=== PATIENT | male | born 1975 | race Caucasian/White ===

== ENCOUNTER 2017-03-13 21:44 | Emergency (ER) | payer SELFPAY ==
[~2017-03-13] VITALS: Ht 157.5 cm; Wt 91.6 kg
[2017-03-13 21:48] VITALS: BP 151/102; RESP 16; TEMP 97.9; O2SAT 99
[2017-03-13] MEDS ORDERED: METO25TA3 PO (22:06)
[2017-03-13] MEDS ORDERED: AMLO10TA2 PO (22:06)
[2017-03-13 22:10] VITALS: BP 151/102; PULSE 83; RESP 18; TEMP 97.6; O2SAT 99
--- NOTE | 2017-03-13 22:19 | PD ---
HPI Chief Complaint: Abdominal Pain Time Seen by Provider: 21:51 Travel History International Travel<30 days: No Contact w/Intl Traveler<30days: No Traveled to known affect area: No History of Present Illness HPI This patient complains of abdominal pain. Location is right upper quadrant. Duration is 2 days. Severity is moderate, at times severe. No alleviating factors. No obvious exacerbating factors. He used to be a heavy alcohol drinker but now is only very rare drinker. He had an attack of this month ago but never got it evaluated. PFS Past Medical History Hypertension: Yes Tetanus Vaccination: Unknown Influenza Vaccination: No Past Surgical History Surgical History: No Previous Surgery Social History Alcohol Use: Yes Tobacco Use: No Substance Use: No Allergies-Medications (Allergen,Severity, Reaction): Coded Allergies: No Known Allergies (Unverified , 03/13/17) Reported Meds & Prescriptions Reported Meds & Active Scripts Active Reported Metoprolol Tartrate 25 Mg Tab 25 Mg PO DAILY Amlodipine (Amlodipine Besylate) 10 Mg Tab 10 Mg PO DAILY Review of Systems General / Constitutional: No: Fever Eyes: No: Visual changes HENT: No: Headaches Cardiovascular: No: Chest Pain or Discomfort Respiratory: No: Shortness of Breath Gastrointestinal: Positive: Nausea, Abdominal Pain Genitourinary: No: Dysuria Musculoskeletal: No: Pain Skin: No Rash Neurologic: No: Weakness Psychiatric: No: Depression Endocrine: No: Polydipsia Hematologic/Lymphatic: No: Easy Bruising Physical Exam Narrative GENERAL: Well-nourished, well-developed patient with abdominal pain. SKIN: Focused skin assessment reveals no rash and nodules. Skin is Warm and dry. HEAD: Atraumatic. Normocephalic. EYES: Pupils equal and round. No scleral icterus. No injection or drainage. ENT: No nasal bleeding or discharge. Mucous membranes pink and moist. NECK: Trachea midline. No JVD. CARDIOVASCULAR: Regular rate and rhythm. No murmur appreciated. RESPIRATORY: No accessory muscle use. Clear to auscultation. Breath sounds equal bilaterally. GASTROINTESTINAL: Abdomen soft, right quadrant is tender but no rebound or guarding, nondistended. Hepatic and splenic margins not palpable. MUSCULOSKELETAL: No obvious deformities. No clubbing. No cyanosis. No edema. NEUROLOGICAL: Awake and alert. No obvious cranial nerve deficits. Motor grossly within normal limits. Normal speech. PSYCHIATRIC: Appropriate mood and affect; insight and judgment normal. Data Data Last Documented VS Vital Signs Date Time Temp Pulse Resp B/P (MAP) Pulse Ox O2 Delivery O2 Flow Rate FiO2 03/13/17 22:10 97.6 83 18 151/102 (118) 99 MDM Medical Decision Making Medical Screen Exam Complete: Yes Emergency Medical Condition: Yes Medical Record Reviewed: Yes Differential Diagnosis Biliary colic, cholecystitis, pancreatitis Narrative Course I have reviewed the patient's electronic medical record. I've ordered a abdominal pain workup to include labs and CT I gave him a dose of morphine and Maylin Case checked out to Dr. Raines to assist with disposition after workup complete Diagnosis Primary Impression: Abdominal pain Qualified Codes: R10.11 - Right upper quadrant pain Fer Hernandez MD Mar 13, 2017 22:19
[2017-03-13] MEDS ORDERED: ONDANSETRON HCL 4 MG/2 ML VIAL IVP ONE (22:45)
[2017-03-13] MEDS ORDERED: SODIUM CHLORIDE 0.9% FLUSH 10 ML FLUSH IV FLUSH PRN (22:45)
[2017-03-13] MEDS ORDERED: MORPHINE SULFATE 4 MG/ML INJ IV PUSH ONE ×3 (22:45→23:00)
[2017-03-13 22:46] VITALS: RESP 18; O2SAT 98
[2017-03-13 23:12] VITALS: BP 132/93; PULSE 85; RESP 18; O2SAT 93
[2017-03-13 23:17] LABS: AUTOMATED NEUTROPHIL # 5.6 TH/MM3 (1.8-7.7); BASOPHIL % 0.3 % (0.0-2.0); EOSINOPHIL # 0.1 TH/MM3 (0-0.4); EOSINOPHIL % 1.5 % (0.0-4.0); HEMATOCRIT 43.8 % (39.0-51.0); LYMPH % 26.2 % (9.0-44.0); LYMPHOCYTE # 2.3 TH/MM3 (1.0-4.8); MEAN CELL VOLUME 80.8 FL (80.0-100.0); MEAN CORPUSCULAR HEMOGLOBIN 25.8 PG (27.0-34.0); MEAN CORPUSCULAR HGB CONC 31.9 % (32.0-36.0); MEAN PLATELET VOLUME 8.7 FL (7.0-11.0); MONO % 8.7 % (0.0-8.0); MONOCYTE # 0.8 TH/MM3 (0-0.9); NEUT % 63.3 % (16.0-70.0); PLATELET COUNT 280 TH/MM3 (150-450); RED BLOOD COUNT 5.42 MIL/MM3 (4.50-5.90); RED CELL DISTRIBUTION WIDTH 13.1 % (11.6-17.2); WHITE BLOOD COUNT 8.8 TH/MM3 (4.0-11.0)
[2017-03-13 23:26] LABS: CHLORIDE 98 MEQ/L (98-107); SODIUM (NA) 137 MEQ/L (136-145)
[2017-03-13 23:30] LABS: ALBUMIN 3.9 GM/DL (3.4-5.0); BICARBONATE 30.2 MEQ/L (21.0-32.0); CALCIUM 8.9 MG/DL (8.5-10.1); GLUCOSE,RANDOM 98 MG/DL (74-106); LIPASE 152 U/L (73-393)
[2017-03-13 23:31] LABS: BLOOD UREA NITROGEN 20 MG/DL (7-18); PROTHROMBIN TIME - PATIENT 9.9 SEC (9.8-11.6)
[2017-03-13 23:33] LABS: ALT (GPT) 26 U/L (12-78); AST (GOT) 12 U/L (15-37); GLOMERULAR FILTRATION RATE 56 ML/MIN (>89)
[2017-03-13 23:35] LABS: TOTAL BILIRUBIN ADULT 0.3 MG/DL (0.2-1.0); TOTAL PROTEIN 8.4 GM/DL (6.4-8.2)
[2017-03-13 23:36] LABS: ALKALINE PHOSPHATASE 91 U/L (45-117)
[2017-03-13] MEDS ORDERED: IOHEXOL 350 MG/ML 10 ML VIAL (for RAD DIAG) IVCONTRAST ONE (23:45)
--- NOTE | 2017-03-14 00:14 | RADRPT ---
EXAM DATE/TIME: 03/13/2017 23:40 [facility] COMPARISON: No previous studies available for comparison. INDICATIONS : Left upper quad pain today. IV CONTRAST: 96 cc Omnipaque 350 (iohexol) IV ORAL CONTRAST: No oral contrast ingested. RADIATION DOSE: 14.50 CTDIvol (mGy) MEDICAL HISTORY : Hypertension. SURGICAL HISTORY : None. ENCOUNTER: Initial ACUITY: 1 day PAIN SCALE: 8/10 LOCATION: Left upper quadrant TECHNIQUE: Volumetric scanning of the abdomen and pelvis was performed. Using automated exposure control and ad justment of the mA and/or kV according to patient size, radiation dose was kept as low as reasonably achievable to obtain optimal diagnostic quality images. DICOM format image data is available electro nically for review and comparison. FINDINGS: LOWER LUNGS: The visualized lower lungs are clear. LIVER: Cyst along the posteromedial surface of segment . No suspicious liver masses. No biliary ductal dil atation. Stone in the gallbladder neck. No abnormal gallbladder wall thickening or dilatation. SPLEEN: Normal size without lesion. PANCREAS: Within normal limits. KIDNEYS: Normal in size and shape. There is no mass, stone or hydronephrosis. ADRENAL GLANDS: Within normal limits. VASCULAR: No abnormal dilatation of the abdominal aorta. No major vessel occlusion. Retroaortic left renal vein noted. BOWEL/MESENTERY: The stomach, small bowel, and colon demonstrate no acute abnormality. There is no free intraperitone al air or fluid. ABDOMINAL WALL: Within normal limits. RETROPERITONEUM: There is no lymphadenopathy. BLADDER: No wall thickening or mass. REPRODUCTIVE: Within normal limits. INGUINAL: There is no lymphadenopathy or hernia. MUSCULOSKELETAL: Within normal limits for patient age. CONCLUSION: Gallstone. Liver cysts. No acute CT findings and no specific explanation for left upper quadrant abdominal pain. Ryan Lopez MD on March 14, 2017 at 0:08 Board Certified Radiologist. This report was verified electronically.
--- NOTE | 2017-03-14 00:49 | PD ---
Physical Exam Date Seen by Provider: Mar 14, 2017 Time Seen by Provider: 00:48 Narrative Accepted in transfer of care from Dr. Hernandez GENERAL: Well-developed well-nourished female in no acute distress no respiratory distress SKIN: Warm and dry. HEAD: Normocephalic. EYES: No scleral icterus. No injection or drainage. NECK: Supple, trachea midline. No JVD or lymphadenopathy. CARDIOVASCULAR: Regular rate and rhythm without murmurs, gallops, or rubs. RESPIRATORY: Breath sounds equal bilaterally. No accessory muscle use. GASTROINTESTINAL: Abdomen soft, non-tender, nondistended. Data Data Last Documented VS Vital Signs Date Time Temp Pulse Resp B/P (MAP) Pulse Ox O2 Delivery O2 Flow Rate FiO2 03/13/17 23:30 16 03/13/17 23:12 85 132/93 (106) 93 Room Air 03/13/17 22:10 97.6 Orders Orders Complete Blood Count With Diff (03/13/17 22:38) Comprehensive Metabolic Panel (03/13/17 22:38) Lipase (03/13/17 22:38) Prothrombin Time / Inr (Pt) (03/13/17 22:38) Act Partial Throm Time (Ptt) (03/13/17 22:38) Ct Abd/Pel W Iv Contrast(Rout) (03/13/17 22:38) Iv Access Insert/Monitor (03/13/17 22:38) Ecg Monitoring (03/13/17 22:38) Oximetry (03/13/17 22:38) Sodium Chloride 0.9% Flush (Ns Flush) (03/13/17 22:45) Ondansetron Inj (Zofran Inj) (03/13/17 22:45) Morphine Inj (Morphine Inj) (03/13/17 23:00) Iohexol 350 Inj (Omnipaque 350 Inj) (03/13/17 23:45) Us Abdomen Gallbladder (03/14/17 ) Ed Discharge Order (03/14/17 01:26) Labs Laboratory Tests Test 03/13/17 23:05 White Blood Count 8.8 TH/MM3 Red Blood Count 5.42 MIL/MM3 Hemoglobin 14.0 GM/DL Hematocrit 43.8 % Mean Corpuscular Volume 80.8 FL Mean Corpuscular Hemoglobin 25.8 PG Mean Corpuscular Hemoglobin Concent 31.9 % Red Cell Distribution Width 13.1 % Platelet Count 280 TH/MM3 Mean Platelet Volume 8.7 FL Neutrophils (%) (Auto) 63.3 % Lymphocytes (%) (Auto) 26.2 % Monocytes (%) (Auto) 8.7 % Eosinophils (%) (Auto) 1.5 % Basophils (%) (Auto) 0.3 % Neutrophils # (Auto) 5.6 TH/MM3 Lymphocytes # (Auto) 2.3 TH/MM3 Monocytes # (Auto) 0.8 TH/MM3 Eosinophils # (Auto) 0.1 TH/MM3 Basophils # (Auto) 0.0 TH/MM3 CBC Comment DIFF FINAL Differential Comment Prothrombin Time 9.9 SEC Prothromb Time International Ratio 1.0 RATIO Activated Partial Thromboplast Time 26.6 SEC Blood Urea Nitrogen 20 MG/DL Creatinine 1.40 MG/DL Random Glucose 98 MG/DL Total Protein 8.4 GM/DL Albumin 3.9 GM/DL Calcium Level 8.9 MG/DL Alkaline Phosphatase 91 U/L Aspartate Amino Transf (AST/SGOT) 12 U/L Alanine Aminotransferase (ALT/SGPT) 26 U/L Total Bilirubin 0.3 MG/DL Sodium Level 137 MEQ/L Potassium Level 3.2 MEQ/L Chloride Level 98 MEQ/L Carbon Dioxide Level 30.2 MEQ/L Anion Gap 9 MEQ/L Estimat Glomerular Filtration Rate 56 ML/MIN Lipase 152 U/L [facility] Medical Record Reviewed: Yes Supervised Visit with KATHLEEN: No Interpretation(s) Last Impressions Abdomen/Pelvis CT 03/13/172237 Signed Impressions: Service Date/Time: Monday, March 13, 2017 23:40 - CONCLUSION: Gallstone. Liver cysts. No acute CT findings and no specific explanation for left upper quadrant abdominal pain. Ryan Lopez MD CBC & BMP Diagram 03/13/17 23:05 Total Protein 8.4 H, Albumin 3.9, Calcium Level 8.9, Alkaline Phosphatase 91, Aspartate Amino Transf (AST/SGOT) 12 L, Alanine Aminotransferase (ALT/SGPT) 26, Total Bilirubin 0.3 Vital Signs Date Time Temp Pulse Resp B/P (MAP) Pulse Ox O2 Delivery O2 Flow Rate FiO2 03/13/17 23:30 16 03/13/17 23:12 85 18 132/93 (106) 93 Room Air 03/13/17 22:46 18 98 Room Air 03/13/17 22:10 97.6 83 18 151/102 (118) 99 03/13/17 21:48 97.9 16 151/102 (118) 99 Differential Diagnosis Accepted in transfer of care from Dr. Hernandez; please refer to his dictation Narrative Course Accepted in transfer of care from Dr. Hernandez for follow-up of pending labs and imaging study and disposition CT abdomen and pelvis per reading radiologist gallstone no acute intra- abdominal or pelvic abnormality Patient informed with [employer] manager leadership development who is a of imaging results and lab results patient reexamined abdomen soft nontender no guarding or rebound; patient stable for outpatient management; patient given resources for follow-up as an outpatient and encouraged to follow low fat diet and to return to the emergency department for any concerns or change in condition. Currently pain is 0/10 in intensity. Diagnosis Primary Impression: Abdominal pain Qualified Codes: R10.11 - Right upper quadrant pain Additional Impression: Biliary colic Referrals: General Surgeon as needed on-call general surgeon: Dr. Magallanes Primary Care Physician call for appointment Patient Instructions: Narcotic given in the ED, General Instructions Additional Instruction: Increase fluid hydration Follow clear liquid diet for next 12-24 hours advance diet as tolerated bland/ Fercho diet then to regular diet avoiding fried and fatty foods Follow-up Gen. surgery Follow-up with primary care provider Return to the emergency department for any concerns or change in condition such as pain fever vomiting Take pain medication as prescribed as needed Take medication as prescribed as needed for nausea and/or vomiting Take acetaminophen/Tylenol every 4 hours as needed for fever 100.4F or greater Take ibuprofen/Advil/Motrin every 6-8 hours as needed for fever 100.4F or greater Med/Other Pt SpecificInfo: Prescription(s) given Scripts Ondansetron Odt (Zofran Odt) 4 Mg Tab 4 MG SL Q6HR Y for Nausea/Vomiting, #10 TAB 0 Refills Prov: Halie Raines MD 03/14/17 Oxycodone-Acetaminophen (Percocet) 5-325 mg Tab 1 TAB PO Q6H Y for PAIN, #7 TAB 0 Refills Prov: Halie Raines MD 03/14/17 Disposition: DISCHARGE HOME Condition: Stable Halie Raines MD Mar 14, 2017 00:49
[2017-03-14 01:00] VITALS: BP 138/86; PULSE 68; RESP 18; O2SAT 98
[2017-03-14] MEDS ORDERED: ZOFR4TAB3 SL (01:30)
[2017-03-14] MEDS ORDERED: PERC5TAB12 PO (01:30)
[2017-03-14 02:15] VITALS: BP 135/82
== END 2017-03-14 02:19 | disposition home or self-care (01) ==
LOC: PHED 21:44
DX: R10.11 Right upper quadrant pain (principal); K80.70 Calculus of gallbladder and bile duct without cholecystitis without obstruction; I10 Essential (primary) hypertension; R11.0 Nausea
CPT/HCPCS: 74177; 80053; 83690; 85025; 85610; 85730; 96374; 96375; 99285; J2270; J2405; Q9967

== ENCOUNTER 2017-04-29 02:17 | Observation (INO) | payer MEDICAID ==
[~2017-04-29] VITALS: Ht 162.6 cm; Wt 91.3 kg
[2017-04-29] VITALS (10 sets, daily range): BP systolic 127–165; BP diastolic 83–116; PULSE 62–84; RESP 14–23; TEMP 96.3–98.9; O2SAT 92–99
[~2017-04-29 02:17] MED LIST: AMLO10TA2 PO; METO25TA3 PO; PERC5TAB12 PO; ZOFR4TAB3 SL
[2017-04-29] MEDS ORDERED: SODIUM CHLOR 0.9% 1000 ML INJ 1,000 ML IV SCH (02:51)
--- NOTE | 2017-04-29 02:57 | PD ---
HPI Chief Complaint: Abdominal Pain Time Seen by Provider: 02:46 Travel History International Travel<30 days: No Contact w/Intl Traveler<30days: No Traveled to known affect area: No History of Present Illness HPI 41-year-old male complains of right upper quadrant abdominal pain. Patient states that the pain started about an hour and a half prior coming to the emergency room. Patient states the pain is severe sharp pain localized to right upper quadrant of the abdomen. Patient denies any pain radiation. Patient denies any headache. Patient denies any chest pain or shortness of breath. Patient denies any dysuria or frequency. Patient denies any back pain. Patient denies any fever chills. On a scale of 1-10 the pain is a 10. Patient was seen in emergency room at [facility] in [place] on March 13, 2017. CT scan abdomen and pelvis at that time shows gallstone. Patient was advised to follow with general surgeon. Patient has not done so. Patient was given prescription for oxycodone for pain. Patient states that he did not get any pain relief from oxycodone. PFSH Past Medical History Hypertension: Yes Past Surgical History Surgical History: No Previous Surgery Social History Alcohol Use: Yes (OCC) Tobacco Use: No Substance Use: No Allergies-Medications (Allergen,Severity, Reaction): Coded Allergies: No Known Allergies (Unverified , 04/29/17) Reported Meds & Prescriptions Reported Meds & Active Scripts Active Zofran Odt (Ondansetron Odt) 4 Mg Tab 4 Mg SL Q6HR PRN Percocet (Oxycodone-Acetaminophen) 5-325 mg Tab 1 Tab PO Q6H PRN Reported Metoprolol Tartrate 25 Mg Tab 25 Mg PO DAILY Amlodipine (Amlodipine Besylate) 10 Mg Tab 10 Mg PO DAILY Review of Systems General / Constitutional: No: Fever Eyes: No: Visual changes HENT: No: Headaches Cardiovascular: No: Chest Pain or Discomfort Respiratory: No: Shortness of Breath Gastrointestinal: Positive: Abdominal Pain Genitourinary: No: Dysuria Musculoskeletal: No: Pain Skin: No Rash Neurologic: No: Weakness Psychiatric: No: Depression Endocrine: No: Polydipsia Hematologic/Lymphatic: No: Easy Bruising Physical Exam Narrative GENERAL: Well-nourished, well-developed patient. SKIN: Focused skin assessment warm/dry. HEAD: Normocephalic. EYES: No scleral icterus. No injection or drainage. NECK: Supple, trachea midline. No JVD or lymphadenopathy. CARDIOVASCULAR: Regular rate and rhythm without murmurs, gallops, or rubs. RESPIRATORY: Breath sounds equal bilaterally. No accessory muscle use. GASTROINTESTINAL: Abdomen soft, nondistended. Patient has moderate tenderness on palpation right upper quadrant of the abdomen. No rebound tenderness. No mass. MUSCULOSKELETAL: No cyanosis, or edema. BACK: Nontender without obvious deformity. No CVA tenderness. Neurologic exam normal. Data Data Last Documented VS Vital Signs Date Time Temp Pulse Resp B/P (MAP) Pulse Ox O2 Delivery O2 Flow Rate FiO2 04/29/17 06:30 62 16 142/92 (109) 94 Room Air 04/29/17 02:20 97.8 Orders Orders Complete Blood Count With Diff (04/29/17 02:51) Comprehensive Metabolic Panel (04/29/17 02:51) Lipase (04/29/17 02:51) Urinalysis - C+S If Indicated (04/29/17 02:51) Us Abdomen Gallbladder (04/29/17 ) Iv Access Insert/Monitor (04/29/17 02:51) Ecg Monitoring (04/29/17 02:51) Oximetry (04/29/17 02:51) Ondansetron Inj (Zofran Inj) (04/29/17 03:00) Sodium Chlor 0.9% 1000 Ml Inj (Ns 1000 M (04/29/17 02:51) Sodium Chloride 0.9% Flush (Ns Flush) (04/29/17 03:00) Famotidine Inj (Pepcid Inj) (04/29/17 03:00) Morphine Inj (Morphine Inj) (04/29/17 03:00) Piperacil-Tazo 3.375 Gm Premix (Zosyn 3. (04/29/17 03:00) Admit Order (Ed Use Only) (04/29/17 06:50) Labs Laboratory Tests Test 04/29/17 03:15 04/29/17 05:25 White Blood Count 8.5 TH/MM3 Red Blood Count 5.29 MIL/MM3 Hemoglobin 14.5 GM/DL Hematocrit 42.1 % Mean Corpuscular Volume 79.7 FL Mean Corpuscular Hemoglobin 27.5 PG Mean Corpuscular Hemoglobin Concent 34.5 % Red Cell Distribution Width 14.4 % Platelet Count 288 TH/MM3 Mean Platelet Volume 8.9 FL Neutrophils (%) (Auto) 60.5 % Lymphocytes (%) (Auto) 28.0 % Monocytes (%) (Auto) 9.1 % Eosinophils (%) (Auto) 1.5 % Basophils (%) (Auto) 0.9 % Neutrophils # (Auto) 5.2 TH/MM3 Lymphocytes # (Auto) 2.4 TH/MM3 Monocytes # (Auto) 0.8 TH/MM3 Eosinophils # (Auto) 0.1 TH/MM3 Basophils # (Auto) 0.1 TH/MM3 CBC Comment DIFF FINAL Differential Comment Blood Urea Nitrogen 18 MG/DL Creatinine 1.00 MG/DL Random Glucose 107 MG/DL Total Protein 8.2 GM/DL Albumin 4.0 GM/DL Calcium Level 8.7 MG/DL Alkaline Phosphatase 87 U/L Aspartate Amino Transf (AST/SGOT) 16 U/L Alanine Aminotransferase (ALT/SGPT) 39 U/L Total Bilirubin 0.2 MG/DL Sodium Level 139 MEQ/L Potassium Level 3.4 MEQ/L Chloride Level 104 MEQ/L Carbon Dioxide Level 27.1 MEQ/L Anion Gap 8 MEQ/L Estimat Glomerular Filtration Rate 83 ML/MIN Lipase 152 U/L Urine Color LIGHT-YELLOW Urine Turbidity CLEAR Urine pH 6.5 Urine Specific [place] 1.011 Urine Protein NEG mg/dL Urine Glucose (UA) NEG mg/dL Urine Ketones NEG mg/dL Urine Occult Blood NEG Urine Nitrite NEG Urine Bilirubin NEG Urine Urobilinogen LESS THAN 2.0 MG/DL Urine Leukocyte Esterase NEG Urine RBC 1 /hpf Urine WBC 1 /hpf Urine Bacteria RARE /hpf Microscopic Urinalysis Comment CULT NOT INDICATED MDM Medical Decision Making Medical Screen Exam Complete: Yes Emergency Medical Condition: Yes Medical Record Reviewed: Yes Interpretation(s) 5:10 AM. CBC within normal limit. Potassium 3.4. Sonogram shows cholelithiasis with mild gallbladder wall thickening. Differential Diagnosis Differential diagnosis including acute cholecystitis, pyelonephritis, nephrolithiasis, colitis. Narrative Course 41-year-old male with right upper quadrant abdominal pain. History of gallstone. Normal saline solution 1 25 cc an hour. Pepcid 20 mg IV. Morphine 2 mg IV. Zofran 4 mg IV. Zosyn 3.375 g IV given. Spoke with Dr. Green, general surgeon. Patient will be admitted pending cholecystectomy. Diagnosis Primary Impression: Acute cholecystitis due to biliary calculus Admitting Information Admitting Physician Requests: Admit Justice Thomson MD Apr 29, 2017 02:57
[2017-04-29] MEDS ORDERED: PIPERACIL-TAZO 3.375 GM PREMIX 50 ML IV ONE (03:00)
[2017-04-29] MEDS ORDERED: ONDANSETRON HCL 4 MG/2 ML VIAL IVP ONE (03:00)
[2017-04-29] MEDS ORDERED: SODIUM CHLORIDE 0.9% FLUSH 10 ML FLUSH IV FLUSH PRN ×2 (03:00→08:00)
[2017-04-29] MEDS ORDERED: MORPHINE SULFATE 2 MG/ML INJ IV PUSH ONE (03:00)
[2017-04-29] MEDS ORDERED: FAMOTIDINE 20 MG/2 ML VIAL IV PUSH ONE (03:00)
[2017-04-29 03:31] LABS: AUTOMATED NEUTROPHIL # 5.2 TH/MM3 (1.8-7.7); BASOPHIL # 0.1 TH/MM3 (0-0.2); BASOPHIL % 0.9 % (0.0-2.0); EOSINOPHIL # 0.1 TH/MM3 (0-0.4); EOSINOPHIL % 1.5 % (0.0-4.0); HEMATOCRIT 42.1 % (39.0-51.0); HEMOGLOBIN 14.5 GM/DL (13.0-17.0); LYMPHOCYTE # 2.4 TH/MM3 (1.0-4.8); MEAN CELL VOLUME 79.7 FL (80.0-100.0); MEAN CORPUSCULAR HEMOGLOBIN 27.5 PG (27.0-34.0); MEAN CORPUSCULAR HGB CONC 34.5 % (32.0-36.0); MEAN PLATELET VOLUME 8.9 FL (7.0-11.0); MONO % 9.1 % (0.0-8.0); MONOCYTE # 0.8 TH/MM3 (0-0.9); NEUT % 60.5 % (16.0-70.0); PLATELET COUNT 288 TH/MM3 (150-450); RED BLOOD COUNT 5.29 MIL/MM3 (4.50-5.90); RED CELL DISTRIBUTION WIDTH 14.4 % (11.6-17.2); WHITE BLOOD COUNT 8.5 TH/MM3 (4.0-11.0)
[2017-04-29 03:43] LABS: ALT (GPT) 39 U/L (12-78); AST (GOT) 16 U/L (15-37); BICARBONATE 27.1 MEQ/L (21.0-32.0); BLOOD UREA NITROGEN 18 MG/DL (7-18); CALCIUM 8.7 MG/DL (8.5-10.1); CHLORIDE 104 MEQ/L (98-107); GLOMERULAR FILTRATION RATE 83 ML/MIN (>89); GLUCOSE,RANDOM 107 MG/DL (74-106); SODIUM (NA) 139 MEQ/L (136-145)
[2017-04-29 03:46] LABS: ALKALINE PHOSPHATASE 87 U/L (45-117); TOTAL BILIRUBIN ADULT 0.2 MG/DL (0.2-1.0); TOTAL PROTEIN 8.2 GM/DL (6.4-8.2)
[2017-04-29 05:38] LABS: BACTERIA, URINE RARE /hpf; BILIRUBIN, URINE NEG (NEG); BLOOD, URINE NEG (NEG); GLUCOSE,URINE NEG (NEG); KETONE, URINE NEG (NEG); NITRITE,URINE NEG (NEG); PH, URINE 6.5 (5.0-8.5); URINE COLOR LIGHT-YELLOW (YELLW/STRAW); URINE LEUKOCYTE ESTERASE NEG (NEG)
--- NOTE | 2017-04-29 06:39 | RADRPT ---
EXAM DATE/TIME: 04/29/2017 05:57 [facility] COMPARISON: CT ABDOMEN & PELVIS W CONTRAST, March 13, 2017, 23:40. INDICATIONS : Right upper quadrant pain. MEDICAL HISTORY : Hypertension. SURGICAL HISTORY : None. ENCOUNTER: Initial ACUITY: 1 day PAIN SCORE: 4/10 LOCATION: Right upper quadrant MEASUREMENTS: LIVER: 17.4 cm length COMMON DUCT: 3 mm RIGHT KIDNEY: 9.3 x 4.7 x 5.9 cm FINDINGS: LIVER: Normal echotexture without focal lesion or ductal dilatation. COMMON DUCT: No intraluminal mass or stone visualized. GALLBLADDER: There is a single stone within the gallbladder measuring approximately 2 cm. Mild gallbladder wall th ickening is present measuring up to 6 mm. There is no pericholecystic fluid and sonographic Stephenson si gn is negative. PANCREAS: The visualized portions demonstrate no abnormality. RIGHT KIDNEY: No evidence of hydronephrosis, stone, or mass. CONCLUSION: 1. Cholelithiasis with mild gallbladder wall thickening. However, sonographic Stephenson's sign is negati ve suggesting against acute gallbladder obstruction or inflammation. The wall thickening could be rel ated to chronic inflammation. 2. Remainder of the examination is within normal limits. Ryan Mcbride MD on April 29, 2017 at 6:35 Board Certified Radiologist. This report was verified electronically.
[2017-04-29] MEDS ORDERED: ONDANSETRON HCL 4 MG/2 ML VIAL IV PUSH PRN (08:00)
[2017-04-29] MEDS ORDERED: MORPHINE SULFATE 4 MG/ML INJ IV PUSH PRN (08:00)
[2017-04-29] MEDS ORDERED: ceFAZolin 2 GM PREMIX 50 ML IV ONE (09:00)
[2017-04-29] MEDS: PANTOPRAZOLE SODIUM 40 MG VIAL IV PUSH SCH (09:16)
[2017-04-29] MEDS: SODIUM CHLORIDE 0.9% FLUSH 10 ML FLUSH IV FLUSH SCH ×2 (09:16→19:57)
[2017-04-29] MEDS: SODIUM CHLOR 0.9% 1000 ML INJ 1,000 ML IV SCH ×3 (09:28→23:32)
--- NOTE | 2017-04-29 10:17 | HHI.HP ---
cc: Baldev Green MD [facility] Service ADMISSION NOTE FOR SURGICAL ATTENDING, DR. BALDEV GREEN General Surgery Primary Care Physician No Primary Care Physician Admission Diagnosis Symptomatic cholelithiasis Chief Complaint: RIGHT upper quadrant abdominal pain History of Present Illness This is a 41 year old male with a past medical history of hypertension. The patient comes to the Emergency Department complaining of right upper quadrant abdominal pain without any associated nausea or vomiting. The patient last ate at around dinnertime yesterday steak, beans and rice. An ultrasound of the gallbladder was obtained which shows gallstones and mild gallbladder wall thickening. The patient does have relief of the pain after IV pain medication. The patient had a similar type episode in February [address] abdomen and pelvis was obtained which showed gallstones. The patient was given an outpatient referral to General Surgery but has not followed up. A General Surgery admission has been requested for possible laparoscopic cholecystectomy. Review of Systems Constitutional: DENIES: Fatigue, Change in appetite Endocrine: DENIES: Polydipsia, Polyuria, Polyphagia Eyes: DENIES: Diplopia, Eye inflammation Ears, nose, mouth, throat: DENIES: Hearing loss Respiratory: DENIES: Cough Cardiovascular: DENIES: Chest pain, Palpitations Gastrointestinal: COMPLAINS OF: Abdominal pain, DENIES: Nausea, Vomiting Genitourinary: DENIES: Urgency Musculoskeletal: DENIES: Joint pain Integumentary: DENIES: Abnormal pigmentation Hematologic/lymphatic: DENIES: Bruising Immunologic/allergic: DENIES: Eczema Neurologic: DENIES: Headache, Localized weakness Psychiatric: DENIES: Mood changes, Depression, Hallucinations Past Family Social History Past Medical History Hypertension Past Surgical History None Reported Medications Metoprolol Amlodipine Zofran Percocet Allergies: Coded Allergies: No Known Allergies (Unverified , 04/29/17) Active Ordered Medications Current Medications Medications (Trade) Dose Ordered Sig/Rosa Maria Route Start Time Stop Time Status Last Admin Sodium Chloride 1,000 ml @ 125 mls/hr Q8H IV 04/29/17 08:00 04/29/17 09:28 (NS Flush) 2 ml BID IV FLUSH 04/29/17 09:00 04/29/17 09:16 (NS Flush) 2 ml UNSCH PRN IV FLUSH 04/29/17 08:00 (Protonix Inj) 40 mg DAILY IV PUSH 04/29/17 09:00 04/29/17 09:16 (Morphine Inj) 3 mg Q4H PRN IV PUSH 04/29/17 08:00 (Zofran Inj) 4 mg Q6H PRN IV PUSH 04/29/17 08:00 Family History Noncontributory Social History Denies tobacco use Denies EtOH use Denies illicit drug use He is . Is currently unemployed. Physical Exam Vital Signs Vital Signs Date Time Temp Pulse Resp B/P (MAP) Pulse Ox O2 Delivery O2 Flow Rate FiO2 04/29/17 08:15 97.2 73 18 132/94 (107) 95 04/29/17 07:30 73 23 135/85 (102) 99 Room Air 04/29/17 06:30 62 16 142/92 (109) 94 Room Air 04/29/17 05:30 64 16 131/88 (102) 95 Room Air 04/29/17 04:30 66 16 127/86 (100) 94 Room Air 04/29/17 03:30 75 18 137/83 (101) 96 Room Air 04/29/17 02:20 97.8 81 16 165/116 (132) 98 Room Air Physical Exam GENERAL: Very pleasant 41-year-old male resting in bed in no acute distress. SKIN: Warm and dry. HEAD: Atraumatic. Normocephalic. EYES: Pupils equal and round. No scleral icterus. No injection or drainage. ENT: No nasal bleeding or discharge. Mucous membranes pink and moist. NECK: Trachea midline. CARDIOVASCULAR: Regular rate and rhythm. RESPIRATORY: No accessory muscle use. Clear to auscultation. Breath sounds equal bilaterally. GASTROINTESTINAL: Abdomen soft, nondistended. Abdomen is obese. Right upper quadrant tenderness with palpation. No visible scars or hernias. MUSCULOSKELETAL: Extremities without clubbing, cyanosis, or edema. No obvious deformities. NEUROLOGICAL: Awake and alert. No obvious cranial nerve deficits. Motor grossly within normal limits. Five out of 5 muscle strength in the arms and legs. Normal speech. PSYCHIATRIC: Appropriate mood and affect; insight and judgment normal. Laboratory Laboratory Tests Test 04/29/17 03:15 04/29/17 05:25 White Blood Count 8.5 Red Blood Count 5.29 Hemoglobin 14.5 Hematocrit 42.1 Mean Corpuscular Volume 79.7 Mean Corpuscular Hemoglobin 27.5 Mean Corpuscular Hemoglobin Concent 34.5 Red Cell Distribution Width 14.4 Platelet Count 288 Mean Platelet Volume 8.9 Neutrophils (%) (Auto) 60.5 Lymphocytes (%) (Auto) 28.0 Monocytes (%) (Auto) 9.1 Eosinophils (%) (Auto) 1.5 Basophils (%) (Auto) 0.9 Neutrophils # (Auto) 5.2 Lymphocytes # (Auto) 2.4 Monocytes # (Auto) 0.8 Eosinophils # (Auto) 0.1 Basophils # (Auto) 0.1 CBC Comment DIFF FINAL Differential Comment Blood Urea Nitrogen 18 Creatinine 1.00 Random Glucose 107 Total Protein 8.2 Albumin 4.0 Calcium Level 8.7 Alkaline Phosphatase 87 Aspartate Amino Transf (AST/SGOT) 16 Alanine Aminotransferase (ALT/SGPT) 39 Total Bilirubin 0.2 Sodium Level 139 Potassium Level 3.4 Chloride Level 104 Carbon Dioxide Level 27.1 Anion Gap 8 Estimat Glomerular Filtration Rate 83 Lipase 152 Urine Color LIGHT-YELLOW Urine Turbidity CLEAR Urine pH 6.5 Urine Specific [place] 1.011 Urine Protein NEG Urine Glucose (UA) NEG Urine Ketones NEG Urine Occult Blood NEG Urine Nitrite NEG Urine Bilirubin NEG Urine Urobilinogen LESS THAN 2.0 Urine Leukocyte Esterase NEG Urine RBC 1 Urine WBC 1 Urine Bacteria RARE Microscopic Urinalysis Comment CULT NOT INDICATED Result Diagram: 04/29/175 04/29/17 0315 Imaging Last 48 hours Impressions Gall Bladder Ultrasound 04/29/17 0000 Signed Impressions: Service Date/Time: Saturday, April 29, 2017 05:57 - CONCLUSION: 1. Cholelithiasis with mild gallbladder wall thickening. However, sonographic Stephenson's sign is negative suggesting against acute gallbladder obstruction or inflammation. The wall thickening could be related to chronic inflammation. 2. Remainder of the examination is within normal limits. MD Ysabel Moreland VTE Risk Assessment Ysabel VTE Risk Assessment: No/Low Risk (score <= 1) VTE Pharm Contraindication: surgery Caprini Risk Assessment Model Point Value = 1 Point Value = 2 Point Value = 3 Point Value = 5 Age 41-60 Minor surgery BMI > 25 kg/m2 Swollen legs Varicose veins or History of unexplained or recurrent spontaneous Oral contraceptives or hormone replacement Sepsis (< 1 month) Serious lung disease, including pneumonia (< 1 month) Abnormal pulmonary function Acute myocardial infarction Congestive heart failure (< 1 month) History of inflammatory bowel disease Medical patient at bed rest Age 61-74 Arthroscopic surgery Major open surgery (> 45 min) Laparoscopic surgery (> 45 min) Malignancy Confined to bed (> 72 hours) Immobilizing plaster cast Central venous access Age >= 75 History of VTE Family history of VTE Factor V Leiden Prothrombin [id number] Lupus anticoagulant Anticardiolipin antibodies Elevated serum homocysteine Heparin-induced thrombocytopenia Other congenital or acquired thrombophilia Stroke (< 1 month) Elective arthroplasty Hip, pelvis, or leg fracture Acute spinal cord injury (< 1 month) Prophylaxis Regimen Total Risk Factor Score Risk Level Prophylaxis Regimen 0-1 Low Early ambulation 2 Moderate Order ONE of the following: *Sequential Compression Device (SCD) *Heparin 5000 units SQ BID 3-4 Higher Order ONE of the following medications: *Heparin 5000 units SQ TID *Enoxaparin/Lovenox 40 mg SQ daily (WT < 150 kg, CrCl > 30 mL/min) *Enoxaparin/Lovenox 30 mg SQ daily (WT < 150 kg, CrCl > 10-29 mL/min) *Enoxaparin/Lovenox 30 mg SQ BID (WT < 150 kg, CrCl > 30 mL/min) AND/OR *Sequential Compression Device (SCD) 5 or more Highest Order ONE of the following medications: *Heparin 5000 units SQ TID (Preferred with Epidurals) *Enoxaparin/Lovenox 40 mg SQ daily (WT < 150 kg, CrCl > 30 mL/min) *Enoxaparin/Lovenox 30 mg SQ daily (WT < 150 kg, CrCl > 10-29 mL/min) *Enoxaparin/Lovenox 30 mg SQ BID (WT < 150 kg, CrCl > 30 mL/min) AND *Sequential Compression Device (SCD) Assessment and Plan Problem List: (1) Right upper quadrant abdominal pain ICD Codes: R10.11 - Right upper quadrant pain (2) Gallstones ICD Codes: K80.20 - Calculus of gallbladder without cholecystitis without obstruction (3) Abnormal CT scan ICD Codes: R93.8 - Abnormal findings on diagnostic imaging of other specified body structures (4) Abnormal findings on diagnostic imaging of liver and biliary tract ICD Codes: R93.2 - Abnormal findings on diagnostic imaging of liver and biliary tract (5) Abnormal ultrasound of gallbladder ICD Codes: R93.2 - Abnormal findings on diagnostic imaging of liver and biliary tract (6) Acute cholecystitis due to biliary calculus ICD Codes: K80.00 - Calculus of gallbladder with acute cholecystitis without obstruction Status: Acute Assessment and Plan 41-year-old male with right upper quadrant abdominal pain; symptomatic cholelithiasis -Remain nothing by mouth -Obtain consent for laparoscopic cholecystectomy; possible open procedure; possible intraoperative cholangiogram -IV pain medicine available -Zofran when necessary -Will plan for surgical intervention this afternoon with Dr. Green -Procedure including risks and benefits discussed with patient and at bedside. Discussed Condition With Dr. Green Mr. and Mary Fernández Apr 29, 2017 10:17 Baldev Green MD Apr 30, 2017 16:50
--- NOTE | 2017-04-29 11:02 | EKG ---
Date Performed: 04/29/2017 Time Performed: 02:34:52 PTAGE: 41 years EKG: Sinus rhythm NORMAL ECG NO PREVIOUS TRACING DOCTOR: Brandon Cole Interpretating Date/Time 04/29/2017 10:57:42
[2017-04-30] VITALS: BP 130/82; PULSE 62; RESP 16; TEMP 98.7; O2SAT 95
[2017-04-30] MEDS: SODIUM CHLOR 0.9% 1000 ML INJ 1,000 ML IV SCH ×3 (04:13→19:30)
[2017-04-30 08:00] VITALS: BP 132/92; PULSE 79; RESP 17; TEMP 97.1; O2SAT 98
[2017-04-30] MEDS: PANTOPRAZOLE SODIUM 40 MG VIAL IV PUSH SCH (09:16)
[2017-04-30] MEDS: SODIUM CHLORIDE 0.9% FLUSH 10 ML FLUSH IV FLUSH SCH ×2 (09:16→19:36)
[2017-04-30] MEDS ORDERED: INFLUENZA VIRUS VACCINE (QUADRIVALENT) 0.5 ML SYR IM ONE (10:00)
[2017-04-30 12:00] VITALS: BP 133/86; PULSE 80; RESP 18; TEMP 96.1; O2SAT 97
[2017-04-30] MEDS ORDERED: PHENYLEPH/NS 1000 MCG/10 ML SYR IV ONE (12:00)
[2017-04-30] MEDS ORDERED: LIDOCAINE HCL 1% PF 5 ML SYRINGE OTHER ONE (12:00)
[2017-04-30] MEDS ORDERED: NEOSTIGMINE 5 MG/5 ML SYRINGE IV PUSH ONE (12:00)
[2017-04-30] MEDS ORDERED: DEXAMETHASONE SOD PHOS 4 MG/ML VIAL IV ONE (12:00)
[2017-04-30] MEDS ORDERED: ROCURONIUM INJ 50 MG/5 ML SYRINGE IV PUSH ONE (12:00)
[2017-04-30] MEDS ORDERED: PROPOFOL 200 MG/20 ML AMP IV ONE (12:00)
[2017-04-30] MEDS ORDERED: GLYCOPYRROLATE 1 MG/5 ML SYRINGE IV PUSH ONE (12:00)
[2017-04-30] MEDS ORDERED: ONDANSETRON HCL 4 MG/2 ML VIAL IV ONE (12:00)
[2017-04-30] MEDS ORDERED: KETOROLAC TROMETHAMINE 30 MG/ML (IVP) VIAL IV PUSH ONE (12:00)
[2017-04-30] MEDS ORDERED: ceFAZolin INJ 1,000 MG VIAL IV ONE (12:00)
[2017-04-30] MEDS ORDERED: BUPIVACAINE/EPINEPHRINE 0.25% 50 ML VIAL ONE (14:56)
[2017-04-30] MEDS ORDERED: BUPIVACAINE/EPINEPHRINE 0.5% PF 30 ML VIAL ONE (15:41)
[2017-04-30] MEDS ORDERED: fentaNYL CITRATE 250 MCG/5 ML AMP ONE ×2 (17:04)
--- NOTE | 2017-04-30 18:04 | HHI.PR ---
cc: Baldev Green MD Immediate Post Op Note Procedure Date: Apr 30, 2017 Pre Op Diagnosis: (1) Acute cholecystitis due to biliary calculus (2) Gallstones (3) Abnormal CT scan (4) Abnormal findings on diagnostic imaging of liver and biliary tract (5) Right upper quadrant abdominal pain (6) Abnormal ultrasound of gallbladder Post Op Diagnosis: (1) Status post laparoscopic cholecystectomy (2) Acute cholecystitis due to biliary calculus (3) Gallstones (4) Abnormal CT scan (5) Abnormal findings on diagnostic imaging of liver and biliary tract (6) Right upper quadrant abdominal pain (7) Abnormal ultrasound of gallbladder Surgeon: Baldve Green Printing Supervisor(s): Refer to the OR record Procedure: Refer to OR record Findings: Inflamed gallbladder Specimen(s) removed: Gallbladder Anesthesia: General Drains: None IVF Patient to: PACU Patient Condition: Good Implant/Devices: SEE IMPLANT LOG (if applicable) Date/Time of Procedure: SEE SURGICAL CARE RECORD Baldev Green MD Apr 30, 2017 18:04
[2017-04-30] MEDS ORDERED: PERC5TAB12 PO (18:08)
[2017-04-30] MEDS ORDERED: DO NOT ADM ANY ANTICOAGULANT DRUGS PRN (18:19)
[2017-04-30] MEDS ORDERED: *morphine SULFATE 10 MG/ML PERIprocedure ONLY ONE (18:21)
[2017-04-30 20:00] VITALS: BP 106/65; PULSE 85; RESP 17; TEMP 98.1; O2SAT 93
[2017-05-01] VITALS: BP 115/68; PULSE 71; RESP 15; TEMP 98.7; O2SAT 92
[2017-05-01 04:00] VITALS: BP 110/65; PULSE 82; RESP 17; TEMP 98.6; O2SAT 91
[2017-05-01] MEDS: SODIUM CHLOR 0.9% 1000 ML INJ 1,000 ML IV SCH (07:08)
[2017-05-01] MEDS: PANTOPRAZOLE SODIUM 40 MG VIAL IV PUSH SCH (08:25)
[2017-05-01] MEDS: SODIUM CHLORIDE 0.9% FLUSH 10 ML FLUSH IV FLUSH SCH (08:25)
--- NOTE | 2017-05-01 08:52 | HHI.DS ---
Discharge Summary Admission Date Apr 29, 2017 at 06:52 Admitting Diagnosis acute cholecystitis. Cholelithiasis. (1) Right upper quadrant abdominal pain ICD Codes: R10.11 - Right upper quadrant pain (2) Gallstones ICD Codes: K80.20 - Calculus of gallbladder without cholecystitis without obstruction (3) Abnormal CT scan ICD Codes: R93.8 - Abnormal findings on diagnostic imaging of other specified body structures (4) Abnormal findings on diagnostic imaging of liver and biliary tract ICD Codes: R93.2 - Abnormal findings on diagnostic imaging of liver and biliary tract (5) Abnormal ultrasound of gallbladder ICD Codes: R93.2 - Abnormal findings on diagnostic imaging of liver and biliary tract (6) Acute cholecystitis due to biliary calculus ICD Codes: K80.00 - Calculus of gallbladder with acute cholecystitis without obstruction Status: Acute Brief History This is a 41 year old male with a past medical history of hypertension. The patient comes to the Emergency Department complaining of right upper quadrant abdominal pain without any associated nausea or vomiting. The patient last ate at around dinnertime yesterday steak, beans and rice. An ultrasound of the gallbladder was obtained which shows gallstones and mild gallbladder wall thickening. The patient does have relief of the pain after IV pain medication. The patient had a similar type episode in February [address] abdomen and pelvis was obtained which showed gallstones. The patient was given an outpatient referral to General Surgery but has not followed up. A General Surgery admission has been requested for possible laparoscopic cholecystectomy. CBC/BMP: 04/29/17 0315 04/29/17 0315 Significant Findings Laboratory Tests Test 04/29/17 03:15 04/29/17 05:25 Mean Corpuscular Volume 79.7 FL (80.0-100.0) Monocytes (%) (Auto) 9.1 % (0.0-8.0) Random Glucose 107 MG/DL (74-106) Potassium Level 3.4 MEQ/L (3.5-5.1) Estimat Glomerular Filtration Rate 83 ML/MIN (>89) Urine Bacteria RARE /hpf (NONE) Imaging Last Impressions Gall Bladder Ultrasound 04/29/17 0000 Signed Impressions: Service Date/Time: Saturday, April 29, 2017 05:57 - CONCLUSION: 1. Cholelithiasis with mild gallbladder wall thickening. However, sonographic Stephenson's sign is negative suggesting against acute gallbladder obstruction or inflammation. The wall thickening could be related to chronic inflammation. 2. Remainder of the examination is within normal limits. Ryan Mcbride MD Pt Condition on Discharge: Good Discharge Disposition: Discharge Home Discharge Instructions DIET: Follow Instructions for: As Tolerated, No Restrictions Activities you can perform: See Additionl Instruction Activities to Avoid: Concussion Sports, Contact Sports, Lifting/Bending, Weight Bearing, Prolonged Standing, Strenuous Activity, Bathing, Driving New Medications: Oxycodone-Acetaminophen (Percocet) 5-325 mg Tab 1 TAB PO Q6H PRN for PAIN, #20 TAB 0 Refills Continued Medications: Amlodipine (Amlodipine) 10 Mg Tab 10 MG PO DAILY for Blood Pressure Management, #30 TAB 0 Refills Metoprolol Tartrate (Metoprolol Tartrate) 25 Mg Tab 25 MG PO DAILY, #30 TAB 0 Refills Ondansetron Odt (Zofran Odt) 4 Mg Tab 4 MG SL Q6HR PRN for Nausea/Vomiting, #10 TAB 0 Refills Discontinued Medications: Oxycodone-Acetaminophen (Percocet) 5-325 mg Tab 1 TAB PO Q6H PRN for PAIN, #7 TAB 0 Refills Additional Information Last Impressions Gall Bladder Ultrasound 04/29/17 0000 Signed Impressions: Service Date/Time: Saturday, April 29, 2017 05:57 - CONCLUSION: 1. Cholelithiasis with mild gallbladder wall thickening. However, sonographic Stephenson's sign is negative suggesting against acute gallbladder obstruction or inflammation. The wall thickening could be related to chronic inflammation. 2. Remainder of the examination is within normal limits. MD Peter Moreland Joseph D. MD May 01, 2017 08:52
--- NOTE | 2017-05-01 08:59 | HHI.DS ---
Discharge Summary Admission Date Apr 29, 2017 at 06:52 Admitting Diagnosis acute cholecystitis. Cholelithiasis. (1) Right upper quadrant abdominal pain ICD Codes: R10.11 - Right upper quadrant pain (2) Gallstones ICD Codes: K80.20 - Calculus of gallbladder without cholecystitis without obstruction (3) Abnormal CT scan ICD Codes: R93.8 - Abnormal findings on diagnostic imaging of other specified body structures (4) Abnormal findings on diagnostic imaging of liver and biliary tract ICD Codes: R93.2 - Abnormal findings on diagnostic imaging of liver and biliary tract (5) Abnormal ultrasound of gallbladder ICD Codes: R93.2 - Abnormal findings on diagnostic imaging of liver and biliary tract (6) Acute cholecystitis due to biliary calculus ICD Codes: K80.00 - Calculus of gallbladder with acute cholecystitis without obstruction Status: Acute Brief History This is a 41 year old male with a past medical history of hypertension. The patient comes to the Emergency Department complaining of right upper quadrant abdominal pain without any associated nausea or vomiting. The patient last ate at around dinnertime yesterday steak, beans and rice. An ultrasound of the gallbladder was obtained which shows gallstones and mild gallbladder wall thickening. The patient does have relief of the pain after IV pain medication. The patient had a similar type episode in February [address] abdomen and pelvis was obtained which showed gallstones. The patient was given an outpatient referral to General Surgery but has not followed up. A General Surgery admission has been requested for possible laparoscopic cholecystectomy. CBC/BMP: 04/29/17 0315 04/29/17 0315 Significant Findings Laboratory Tests Test 04/29/17 03:15 04/29/17 05:25 Mean Corpuscular Volume 79.7 FL (80.0-100.0) Monocytes (%) (Auto) 9.1 % (0.0-8.0) Random Glucose 107 MG/DL (74-106) Potassium Level 3.4 MEQ/L (3.5-5.1) Estimat Glomerular Filtration Rate 83 ML/MIN (>89) Urine Bacteria RARE /hpf (NONE) Imaging Last Impressions Gall Bladder Ultrasound 04/29/17 0000 Signed Impressions: Service Date/Time: Saturday, April 29, 2017 05:57 - CONCLUSION: 1. Cholelithiasis with mild gallbladder wall thickening. However, sonographic Stephenson's sign is negative suggesting against acute gallbladder obstruction or inflammation. The wall thickening could be related to chronic inflammation. 2. Remainder of the examination is within normal limits. Ryan Mcbride MD Hospital Course Patient was Ms. the hospital with acute cholecystitis This was confirmed with physical exam and radiologic imaging Patient underwent a laparoscopic cholecystectomy The following morning he was set for discharge He has a follow-up appointment in my office 7-10 days He has a prescription on the chart for pain medication Pt Condition on Discharge: Good Discharge Disposition: Discharge Home Discharge Instructions DIET: Follow Instructions for: As Tolerated, No Restrictions Activities you can perform: See Additionl Instruction Activities to Avoid: Concussion Sports, Contact Sports, Lifting/Bending, Weight Bearing, Prolonged Standing, Strenuous Activity, Bathing, Driving Baldev Green MD May 01, 2017 08:59
--- NOTE | 2017-05-02 16:50 | MP ---
cc: SP GREEN M.D. DATE OF SURGERY: 04/30/2017. PREOPERATIVE DIAGNOSIS: Cholelithiasis, cholecystitis. POSTOPERATIVE DIAGNOSIS: 1. Cholelithiasis, cholecystitis. 2. Umbilical hernia OPERATIVE PROCEDURE PERFORMED: 1. Laparoscopic cholecystectomy. 2. Repair of umbilical hernia. SURGEON: Sp Green MD. ANESTHESIA: General. INDICATIONS FOR THE PROCEDURE: The patient is a pleasant gentleman who came into the hospital with symptomatic cholelithiasis and cholecystitis. Plans were made for the above. DESCRIPTION OF THE PROCEDURE IN DETAIL: The patient was taken to the operating room and placed in the supine position. After anesthesia, his abdomen was prepped with Betadine. He was given preoperative antibiotics. A time out was performed. We then dissected down to the umbilicus after anesthetizing with Marcaine solution. He does have a small umbilical hernia. The Veress needle was placed to the umbilical hernia and the abdomen was insufflated to 15 mmHg. A 10 mm trocar was introduced. The camera was introduced. Two other working ports were placed in the midline. The gallbladder could be seen. It was slightly edematous. We grasped it superiorly and laterally. We identified the cystic duct and cystic artery, both of which were doubly ligated and transected. The gallbladder was then teased off the gallbladder bed and placed into an EndoCatch and pulled out through the umbilical incision. Multiple stones were palpated within the gallbladder. We then passed the gallbladder off the field. We checked our dissection and there was excellent hemostasis. The carbon dioxide was removed. The trocars were removed. The umbilical hernia was then repaired with a #0 Vicryl at the fascial layer and the skin all three sites closed with a 4-0 Vicryl. Steri-Strips were applied. Sterile bandage applied. The patient tolerated the procedure well. Sp Green MD JDB/JACKSON /5:56 PM /4:42 PM SYD[place]
== END 2017-05-01 10:29 | disposition home or self-care (01) ==
LOC: NEPC 02:17 → NEDA 06:52 → INTOOBSV 06:52 → NEDA 08:24 → N07A 11:32
PROVIDERS: ADMIT Surgery; ATTEND Surgery
DX: K80.10 Calculus of gallbladder with chronic cholecystitis without obstruction (principal); K42.9 Umbilical hernia without obstruction or gangrene; R93.8 Abnormal findings on diagnostic imaging of other specified body structures; R93.2 Abnormal findings on diagnostic imaging of liver and biliary tract; I10 Essential (primary) hypertension
CPT/HCPCS: 00750; 00790; 47562; 49585; 76705; 80053; 81001; 83690; 85025; 88304; 93005; 96361; 96374; 96375; 96376; 99285; C9113; G0378; J0690; J1100; J1885; J2270; J2370; J2405; J2543; J2710; J3010; J7030